=== PATIENT | female | born 1975 | race Caucasian/White ===

== ENCOUNTER 2023-07-26 22:36 | Emergency (ER) | payer OTHER ==
[2023-07-26] MEDS ORDERED: HYDROmorphone 1 MG/ML Syringe IM ONE (23:18)
== END 2023-07-27 01:45 | disposition home or self-care (01) ==
LOC: JD.ED 22:36
DX: S82.842A Displaced bimalleolar fracture of left lower leg, initial encounter for closed fracture (principal); I10 Essential (primary) hypertension; F17.210 Nicotine dependence, cigarettes, uncomplicated; Z86.16 Personal history of COVID-19; Z88.1 Allergy status to other antibiotic agents; X50.1XXA Overexertion from prolonged static or awkward postures, initial encounter
CPT/HCPCS: 29515; 73600; 96372; 99283; J1170